=== PATIENT | male | born 1955 | race Caucasian/White ===

== ENCOUNTER → 2017-08-14 | Day surgery (SDC) | payer OTHER ==
[~2017-08-14] MED LIST: ALLOPURINOL100 MG PO; FENTANYL CITRATE/PF 100MCG/2 ML INJ ONE; HYOSCYAMINE SULFATE 0.5 MG/ML AMP ONE; INSULIN REGULAR, HUMAN 100 UNIT/1 ML 3ML VIAL ONE; LIDOCAINE HCL 2% LOCAL INJ 5 ML SDV VIAL INJ ONE; LISINOPRIL PO; METFORMIN HCL500 MG PO; MIDAZOLAM HCL 2 MG/2 ML VIAL ONE; PHENYLEPHRINE HCL 1% 10 MG/ML VIAL ONE; PROPOFOL IV EMULSION 10 MG/ML 50 ML VIAL ONE; VASOPRESSIN INJ 20 UNIT/ML VIAL ONE; [UNRECOGNIZED DRUG - REMARK]
[2017-08-14 16:33] LABS: WBC,FECAL (FECAL LACTOFERRIN) NEGATIVE (NEGATIVE)
--- NOTE | 2017-08-14 18:14 | Operative Report ---
DATE OF PROCEDURE: August 14, 2017 ADDENDUM: IMPRESSION: Add. 7. Anal fissure in the 6 o'clock position with the patient being supine. The plan stays the same. Follow up histology. Follow up stool studies. Initiate VSL#3 one p.o. daily. Also, start Hydrocodone 25 mg suppositories b.i.d. x10 days and then p.r.n. Follow up colonoscopy in 3 years. Job#: [id number]
--- NOTE | 2017-08-14 22:11 | Operative Report ---
DATE OF PROCEDURE: August 14, 2017 REFERRING PHYSICIAN: Dr. Maty Snyder. PROCEDURE PERFORMED: Esophageal dilatation with biopsies and a colonoscopy with polypectomy and biopsies. INDICATIONS FOR EGD: Dysphagia. INDICATIONS FOR COLONOSCOPY: Colorectal cancer screening. History of bright red blood per rectum, intermittent diarrhea. MEDICATION: Patient was done under MAC. Please see anesthesiologist's note. PROCEDURE: With patient in the left lateral decubitus position, flexible fiberoptic Olympus gastroscope was introduced into the esophagus under direct visualization without any difficulty. There was an erosion noted in distal esophagus. There was a mild stricture noted at the GE junction that was dilated to size 52-Tajik Galloway. The scope was then advanced with ease into the stomach and mucosa overlying the antrum and the body revealed some patchy erythema and mild to moderate edema and biopsies were obtained and sent to stain for H. pylori. The pylorus was of normal contour and shape. Was intubated with ease and the scope was advanced all the way to the 2nd portion of the duodenum. The scope was then withdrawn slowly. Mucosa overlying the proximal 2nd portion grossly appeared to be within normal limits. Biopsies were obtained to rule out sprue considering patient's history of diarrhea. Multiple ulcers were noted in the duodenal bulb without active bleeding. The scope was then withdrawn back into the stomach and retroflexed and mucosa overlying the fundus and the cardia appeared to be within normal limits. The scope was then straightened out. The stomach was decompressed. Scope was subsequently withdrawn. Patient tolerated the procedure well. IMPRESSION: 1. Erosive esophagitis. 2. Esophageal stricture at GE junction dilated to size 52-Tajik Galloway. 3. Gastritis biopsied. Biopsy sent to stain for H. pylori. 4. Duodenal bulb ulcers, multiple without active bleeding or stigmata of recent hemorrhage. 5. Rule out sprue. PLAN: Follow up histology. Initiate Protonix 40 mg 1 p.o. q.a.m. a.c. PROCEDURE: Patient was then turned around and after adequate lubrication of the anal canal a flexible fiberoptic Olympus colonoscope was inserted into the rectum with ease and advanced all the way to the cecum. One polyp was snared from the cecum. The scope was then withdrawn slowly and whatever was visualized of the mucosa overlying the ascending grossly appeared to be within normal limits. One polyp was hot biopsied from the transverse colon. Diverticular disease was noted to involve the distal descending and the sigmoid colon. One polyp was snared from the sigmoid colon. The mucosa overlying the sigmoid and rectum revealed some patchy mild to moderate inflammatory changes and biopsies were obtained. The scope was then retroflexed into the distal rectum and small internal hemorrhoids were noted, none of which was actively bleeding. The scope was then straightened out. The rectosigmoid area as well as the distal rectal area were decompressed. Scope was subsequently withdrawn after securing an adequate stool specimen that was sent for the appropriate stool studies. Patient tolerated the procedure well. IMPRESSION 1. Cecal polyp, snared. 2. Transverse colon polyp, hot biopsied. 3. Sigmoid colon polyp snared. 4. Diverticulosis. 5. Proctosigmoiditis. Biopsies obtained. 6. Internal hemorrhoids, none actively bleeding. PLAN: Follow up histology. Follow up stool studies. Initiate VSL #3, one p.o. daily. The patient will need a followup colonoscopy in 3 years. Job#: [id number] GH cc:DARWIN SNYDER MD
[2017-08-15 13:26] LABS: C DIFFICILE TOXIN A&B AMP PROB NEGATIVE (NEGATIVE)
== END | disposition home or self-care (01) ==
LOC: OR 13:27
PROVIDERS: ATTEND Internal Medicine Gastroenterology
DX: Z12.11 Encounter for screening for malignant neoplasm of colon (principal); D12.0 Benign neoplasm of cecum; K29.50 Unspecified chronic gastritis without bleeding; K22.2 Esophageal obstruction; B96.81 Helicobacter pylori [H. pylori] as the cause of diseases classified elsewhere; K63.89 Other specified diseases of intestine; K22.10 Ulcer of esophagus without bleeding; K26.9 Duodenal ulcer, unspecified as acute or chronic, without hemorrhage or perforation; K60.2 Anal fissure, unspecified; K57.30 Diverticulosis of large intestine without perforation or abscess without bleeding; K59.00 Constipation, unspecified; K62.89 Other specified diseases of anus and rectum; K64.8 Other hemorrhoids; I10 Essential (primary) hypertension; E11.9 Type 2 diabetes mellitus without complications; G47.30 Sleep apnea, unspecified; Z68.39 Body mass index [BMI] 39.0-39.9, adult
CPT/HCPCS: 36415; 43239; 43450; 45384; 45385; 82948; 83630; 83993; 87045; 87177; 87328; 87493; J1980; J2001; J2250; J2370; 45380